=== PATIENT | female | born 1955 | race Caucasian/White ===

== ENCOUNTER 2018-02-11 13:05 | Outpatient (CLI) | payer OTHER | END 2018-02-11 23:59 | disposition home or self-care (01) | LOC: CARD DIAG 13:05 | PROVIDERS: ATTEND Internal Medicine Cardiovascular Disease | DX: I05.9 Rheumatic mitral valve disease, unspecified (principal); R94.31 Abnormal electrocardiogram [ECG] [EKG]; R06.02 Shortness of breath; F17.200 Nicotine dependence, unspecified, uncomplicated | CPT/HCPCS: 93306 ==

== ENCOUNTER 2021-03-04 15:46 | Emergency (ER) | payer BC, OTHER ==
[~2021-03-04] VITALS: Ht 152.4 cm; Wt 74.0 kg
[2021-03-04 16:09] VITALS: BP 205/109
[2021-03-04] MEDS ORDERED: CEPH-585 PO (16:16)
== END 2021-03-04 16:00 | disposition home or self-care (01) ==
LOC: ER 15:46
DX: S81.802A Unspecified open wound, left lower leg, initial encounter (principal); E11.9 Type 2 diabetes mellitus without complications; Z79.2 Long term (current) use of antibiotics; X58.XXXA Exposure to other specified factors, initial encounter; Y93.89 Activity, other specified; Y92.89 Other specified places as the place of occurrence of the external cause; Y99.8 Other external cause status
CPT/HCPCS: 99283

== ENCOUNTER 2022-02-27 12:06 | Outpatient (CLI) | payer BC, MEDICAID ==
[~2022-02-27 12:06] MED LIST: CEPH-585 PO
== END 2022-02-27 23:59 | disposition home or self-care (01) ==
LOC: LAB SPEC 12:06
PROVIDERS: ATTEND Family Medicine
DX: A41.9 Sepsis, unspecified organism (principal); L03.115 Cellulitis of right lower limb; N17.9 Acute kidney failure, unspecified; E11.40 Type 2 diabetes mellitus with diabetic neuropathy, unspecified; I73.9 Peripheral vascular disease, unspecified; F33.9 Major depressive disorder, recurrent, unspecified; E78.5 Hyperlipidemia, unspecified; I25.810 Atherosclerosis of coronary artery bypass graft(s) without angina pectoris; G62.9 Polyneuropathy, unspecified; R00.0 Tachycardia, unspecified; K59.00 Constipation, unspecified; Z20.822 Contact with and (suspected) exposure to COVID-19; I10 Essential (primary) hypertension; R26.89 Other abnormalities of gait and mobility; T81.31XD Disruption of external operation (surgical) wound, not elsewhere classified, subsequent encounter; Z74.1 Need for assistance with personal care; Z89.612 Acquired absence of left leg above knee; Z95.1 Presence of aortocoronary bypass graft
CPT/HCPCS: 87070

== ENCOUNTER 2024-01-02 17:58 | Inpatient (IN) | payer BC, MEDICAID ==
[~2024-01-02] VITALS: Ht 154.9 cm; Wt 63.6 kg
[2024-01-02 19:24] LABS: EOSINOPHILS % (AUTO) 0.1 % (0-6); HEMOGLOBIN 13.8 g/dl (12.0-16.0); MEAN CORPUSCULAR VOLUME 94.3 FL (78-98); RED CELL DISTRIBUTION WIDTH 13.7 % (11.5-14.5); WHITE BLOOD COUNT 16.4 X10'3 (4.5-11.0)
[2024-01-02 19:25] LABS: BASOPHILS # (AUTO) 0.1 X10'3 (0-0.2); BASOPHILS % (AUTO) 0.5 % (0-1); HEMATOCRIT 41.8 % (35.0-45.0); LYMPHOCYTES # (AUTO) 0.5 X10'3 (1.1-4.8); MEAN CORPUSCULAR HEMOGLOBIN 31.1 PG (27.0-31.0); MEAN PLATELET VOLUME 7.6 FL (7.4-10.4); MONOCYTES # (AUTO) 0.7 X10'3 (0-0.9); MONOCYTES % (AUTO) 4.5 % (2-12); NEUTROPHILS # (AUTO) 15.1 X10'3 (1.8-7.7); NEUTROPHILS % (AUTO) 91.9 % (42-75); PLATELET COUNT 392 X10'3 (140-440); RED BLOOD COUNT 4.43 X10'6 (4.20-5.60)
[2024-01-02] MEDS: normal saline 1000ml 1,000 ML IV ONE ×2 (19:30)
[2024-01-02] MEDS: morphine 4 MG/ML inj SYRINge IV ONE (19:34)
[2024-01-02] MEDS: piperacillin/tazo 3.375gm/50ml 50 ML IV ONE (19:37)
[2024-01-02 19:38] LABS: ALANINE AMINOTRANSFERASE 17 U/L (12-78); ALBUMIN 2.7 G/DL (3.4-5.0); ALBUMIN/GLOBULIN RATIO 0.6 (1.1-1.5); ALKALINE PHOSPHATASE 97 IU/L (46-116); ANION GAP 13 (8-16); ASPARTATE AMINO TRANSFERASE 18 U/L (10-37); BILIRUBIN,TOTAL 0.3 MG/DL (0.1-1.0); BLOOD UREA NITROGEN 36 MG/DL (7-18); BUN/CREATININE RATIO 23.2 (10.0-20.0); CALCIUM 9.8 MG/DL (8.5-10.1); CHLORIDE 98 MMOL/L (99-107); CREATININE 1.55 MG/DL (0.40-0.90); GLUCOSE 278 MG/DL (70-104); POTASSIUM 3.9 MMOL/L (3.5-5.1); SODIUM 133 MMOL/L (135-145); TOTAL CARBON DIOXIDE 21.8 MMOL/L (24-32); TOTAL PROTEIN 7.4 G/DL (6.4-8.2); eCRCL 27 ML/MIN; eGFR 33 ML/MIN
[2024-01-03] MEDS ORDERED: acetaminophen 650mg rectal suppository RC PRN (00:10)
[2024-01-03] MEDS ORDERED: mag hydrox/Alum hydrox/simeth 30ml oral suspension PO PRN (00:10)
[2024-01-03] MEDS ORDERED: ondansetron/PF 4mg/2ml inj IV PRN (00:10)
[2024-01-03] MEDS ORDERED: magnesium sulf-water 4G/100mL 100 ML IV PRN (00:10)
[2024-01-03] MEDS ORDERED: potassium Cl 20 mEq SR tablet PO PRN ×2 (00:10)
[2024-01-03] MEDS ORDERED: magnesium hydroxide 30ml (MOM) UD suspension PO PRN (00:10)
[2024-01-03] MEDS ORDERED: potassium Cl 40MEQ/1/2NS 520ml 520 ML IV PRN (00:10)
[2024-01-03] MEDS ORDERED: magnesium Cl slow-release 64mg tablet PO PRN (00:10)
[2024-01-03] MEDS ORDERED: acetaminophen 325mg tablet PO PRN (00:10)
[2024-01-03] MEDS ORDERED: magnesium sulf-water 2g/50mL 50 ML IV PRN (00:10)
[2024-01-03] MEDS: morphine 4 MG/ML inj SYRINge IV ONE (01:05)
[2024-01-03] MEDS: normal saline 1000ml 1,000 ML IV SCH (01:08)
[2024-01-03] MEDS ORDERED: glucagon, human recombinant 1mg kit SUBCUT PRN (01:15)
[2024-01-03] MEDS ORDERED: dextrose 50%-water 50ml dispensing syringe IV PRN ×2 (01:15)
[2024-01-03] MEDS ORDERED: DEXTROSE 15 GM of carb/4 tabs (each vial/BOTTLE has 4 tablets) PO PRN ×2 (01:15)
[2024-01-03 02:55] LABS: CHOL/HDL RATIO 2.6 (0.00-4.99); CHOLESTEROL 127 MG/DL (0-200); HDL CHOLESTEROL 49 MG/DL (35-60); LDL CHOLESTEROL 63 MG/DL (50-100); MAGNESIUM 1.6 MG/DL (1.5-2.4); POTASSIUM 4.3 MMOL/L (3.5-5.1); TRIGLYCERIDES 74 MG/DL (20-135)
[2024-01-03] MEDS: HYDROmorphone/PF 0.2 MG/ML SYRINGE IV PRN (03:04)
[2024-01-03] MEDS: INSULIN LISPRO 100 UNIT/ML INSULN.PEN MULTI-DOSE SQ SCH ×2 (07:58→12:00)
[2024-01-03] MEDS: K and/or MAG REPLACEMENT MC SCH (08:00)
[2024-01-03] MEDS: heparin, porcine 5000 units/ml vial SQ SCH (08:20)
[2024-01-03] MEDS: docusate sod 100mg capsule PO SCH (08:21)
[2024-01-03] MEDS: piperacillin/tazo 3.375gm/50ml 50 ML IV SCH (08:21)
[2024-01-03] MEDS: insulin regular, human 10 units/0.1 ml syringe SQ ONE (12:40)
[2024-01-03 16:54] LABS: BILIRUBIN,URINE NEGATIVE (Neg); CLARITY,URINE CLEAR (Clear); COLOR,URINE YELLOW (Yellow); GLUCOSE, URINE >=1000 mg/dl (Neg); KETONES,URINE NEGATIVE (Neg); LEUKOCYTE ESTERASE ,URINE NEGATIVE (Neg); NITRITES, URINE NEGATIVE (Neg); OCCULT BLOOD,URINE TRACE-INTACT (Neg); PH,URINE 5.5 (4.8-8.0); PROTEIN,URINE TRACE mg/dl (Neg); UROBILINOGEN,URINE 0.2 E.U/dL (0.2-1.0)
[2024-01-03 16:57] LABS: UA COLLECTION TYPE NON-SPECIFIED
[2024-01-03 16:58] LABS: BACTERIA,URINE NONE SEEN /HPF (Neg); MUCUS STRANDS NONE SEEN /LPF (Neg); RBC,URINE 0-2 /HPF (0-2); SQUAMOUS EPITHELIAL CELL,UR FEW /LPF (FEW); WBC,URINE 0-4 /HPF (0-4)
[2024-01-03 18:49] LABS: HEMATOCRIT 33.3 % (35.0-45.0); HEMOGLOBIN 10.9 g/dl (12.0-16.0); RED BLOOD COUNT 3.56 X10'6 (4.20-5.60); RED CELL DISTRIBUTION WIDTH 13.5 % (11.5-14.5)
[2024-01-03 18:50] LABS: BASOPHILS # (AUTO) 0.1 X10'3 (0-0.2); BASOPHILS % (AUTO) 0.7 % (0-1); EOSINOPHILS # (AUTO) 0.1 X10'3 (0-0.9); EOSINOPHILS % (AUTO) 0.4 % (0-6); LYMPHOCYTES # (AUTO) 0.8 X10'3 (1.1-4.8); LYMPHOCYTES % (AUTO) 6.7 % (21-51); MEAN CORPUSCULAR HEMOGLOBIN 30.6 PG (27.0-31.0); MEAN CORPUSCULAR HGB CONC 32.7 g/dL (33.0-36.5); MEAN CORPUSCULAR VOLUME 93.6 FL (78-98); MEAN PLATELET VOLUME 7.9 FL (7.4-10.4); MONOCYTES # (AUTO) 0.8 X10'3 (0-0.9); NEUTROPHILS # (AUTO) 10.2 X10'3 (1.8-7.7); NEUTROPHILS % (AUTO) 85.2 % (42-75); PLATELET COUNT 315 X10'3 (140-440); WHITE BLOOD COUNT 11.9 X10'3 (4.5-11.0)
[2024-01-03 18:57] LABS: ALANINE AMINOTRANSFERASE 14 U/L (12-78); ALBUMIN 2.3 G/DL (3.4-5.0); ALBUMIN/GLOBULIN RATIO 0.6 (1.1-1.5); ALKALINE PHOSPHATASE 75 IU/L (46-116); ANION GAP 14 (8-16); ASPARTATE AMINO TRANSFERASE 20 U/L (10-37); BILIRUBIN,TOTAL 0.3 MG/DL (0.1-1.0); BLOOD UREA NITROGEN 30 MG/DL (7-18); BUN/CREATININE RATIO 26.3 (10.0-20.0); CALCIUM 8.6 MG/DL (8.5-10.1); CHLORIDE 100 MMOL/L (99-107); CREATININE 1.14 MG/DL (0.40-0.90); GLUCOSE 297 MG/DL (70-104); POTASSIUM 4.1 MMOL/L (3.5-5.1); SODIUM 132 MMOL/L (135-145); TOTAL PROTEIN 6.3 G/DL (6.4-8.2); eCRCL 37 ML/MIN; eGFR 48 ML/MIN
[2024-01-03] MEDS ORDERED: insulin glargine (Lantus) pen - multi-dose SQ SCH (21:00)
[2024-01-03 22:09] VITALS: RESP 18; O2SAT 95
[2024-01-03] MEDS: insulin glargine (Lantus) pen - multi-dose SQ SCH (23:31)
[2024-01-03] MEDS: HYDROmorphone inj. 0.5 MG/0.5 ML DISP.SYRIN IV PRN (23:37)
[2024-01-04] VITALS (7 sets, daily range): BP systolic 152–192; BP diastolic 70–101; PULSE 82–103; RESP 15–20; TEMP 96.3–98.2; O2SAT 91–96
[2024-01-04 05:45] LABS: BASOPHILS # (AUTO) 0.1 X10'3 (0-0.2); BASOPHILS % (AUTO) 0.6 % (0-1); EOSINOPHILS # (AUTO) 0.1 X10'3 (0-0.9); EOSINOPHILS % (AUTO) 1.5 % (0-6); HEMATOCRIT 33.3 % (35.0-45.0); LYMPHOCYTES # (AUTO) 0.6 X10'3 (1.1-4.8); LYMPHOCYTES % (AUTO) 7.2 % (21-51); MEAN CORPUSCULAR HEMOGLOBIN 30.9 PG (27.0-31.0); MEAN CORPUSCULAR VOLUME 93.6 FL (78-98); MEAN PLATELET VOLUME 7.6 FL (7.4-10.4); MONOCYTES # (AUTO) 0.8 X10'3 (0-0.9); MONOCYTES % (AUTO) 8.7 % (2-12); NEUTROPHILS # (AUTO) 7.1 X10'3 (1.8-7.7); PLATELET COUNT 329 X10'3 (140-440); RED BLOOD COUNT 3.56 X10'6 (4.20-5.60); RED CELL DISTRIBUTION WIDTH 13.5 % (11.5-14.5); WHITE BLOOD COUNT 8.7 X10'3 (4.5-11.0)
[2024-01-04 06:02] LABS: ALANINE AMINOTRANSFERASE 17 U/L (12-78); ALBUMIN 2.1 G/DL (3.4-5.0); ALBUMIN/GLOBULIN RATIO 0.5 (1.1-1.5); ALKALINE PHOSPHATASE 73 IU/L (46-116); ANION GAP 7 (8-16); ASPARTATE AMINO TRANSFERASE 24 U/L (10-37); BILIRUBIN,TOTAL 0.3 MG/DL (0.1-1.0); BLOOD UREA NITROGEN 23 MG/DL (7-18); BUN/CREATININE RATIO 24.5 (10.0-20.0); CALCIUM 8.7 MG/DL (8.5-10.1); CHLORIDE 105 MMOL/L (99-107); CREATININE 0.94 MG/DL (0.40-0.90); GLUCOSE 181 MG/DL (70-104); MAGNESIUM 1.7 MG/DL (1.5-2.4); SODIUM 136 MMOL/L (135-145); TOTAL CARBON DIOXIDE 23.7 MMOL/L (24-32); TOTAL PROTEIN 6.1 G/DL (6.4-8.2); eCRCL 44 ML/MIN; eGFR 60 ML/MIN
[2024-01-04] MEDS: CHLORHEXIDINE GLUCONATE 4% 15 ML topical sol TP ONE (08:00)
[2024-01-04] MEDS: gabapentin 400mg capsule PO SCH ×2 (14:27→21:12)
[2024-01-04] MEDS: lactose-reduced food (Ensure Enlive) - 237ml bottle PO SCH (18:00)
[2024-01-05] VITALS (7 sets, daily range): BP systolic 148–182; BP diastolic 78–104; PULSE 82–110; RESP 16–18; TEMP 96.4–97; O2SAT 96–98
[2024-01-05] MEDS: lisinopril 20mg tablet PO SCH (00:42)
[2024-01-05 04:57] LABS: BASOPHILS # (AUTO) 0.1 X10'3 (0-0.2); EOSINOPHILS # (AUTO) 0.2 X10'3 (0-0.9); EOSINOPHILS % (AUTO) 2.3 % (0-6); HEMATOCRIT 34.3 % (35.0-45.0); HEMOGLOBIN 11.4 g/dl (12.0-16.0); LYMPHOCYTES # (AUTO) 0.7 X10'3 (1.1-4.8); LYMPHOCYTES % (AUTO) 9.1 % (21-51); MEAN CORPUSCULAR HEMOGLOBIN 30.9 PG (27.0-31.0); MEAN CORPUSCULAR HGB CONC 33.2 g/dL (33.0-36.5); MEAN PLATELET VOLUME 7.5 FL (7.4-10.4); MONOCYTES # (AUTO) 0.7 X10'3 (0-0.9); MONOCYTES % (AUTO) 10.1 % (2-12); NEUTROPHILS # (AUTO) 5.5 X10'3 (1.8-7.7); NEUTROPHILS % (AUTO) 77.5 % (42-75); PLATELET COUNT 370 X10'3 (140-440); RED BLOOD COUNT 3.68 X10'6 (4.20-5.60); RED CELL DISTRIBUTION WIDTH 13.3 % (11.5-14.5); WHITE BLOOD COUNT 7.1 X10'3 (4.5-11.0)
[2024-01-05 05:12] LABS: ALANINE AMINOTRANSFERASE 23 U/L (12-78); ALBUMIN 2.1 G/DL (3.4-5.0); ALBUMIN/GLOBULIN RATIO 0.5 (1.1-1.5); ALKALINE PHOSPHATASE 68 IU/L (46-116); ANION GAP 8 (8-16); ASPARTATE AMINO TRANSFERASE 29 U/L (10-37); BILIRUBIN,TOTAL 0.3 MG/DL (0.1-1.0); BLOOD UREA NITROGEN 15 MG/DL (7-18); BUN/CREATININE RATIO 19.7 (10.0-20.0); CALCIUM 8.8 MG/DL (8.5-10.1); CHLORIDE 106 MMOL/L (99-107); CREATININE 0.76 MG/DL (0.40-0.90); GLUCOSE 135 MG/DL (70-104); MAGNESIUM 1.6 MG/DL (1.5-2.4); POTASSIUM 3.7 MMOL/L (3.5-5.1); SODIUM 139 MMOL/L (135-145); TOTAL CARBON DIOXIDE 24.7 MMOL/L (24-32); TOTAL PROTEIN 6.1 G/DL (6.4-8.2); eCRCL 55 ML/MIN; eGFR 76 ML/MIN
[2024-01-05] MEDS ORDERED: IBUP-2417 PO (05:49)
[2024-01-05] MEDS ORDERED: LISI20TA28 PO (05:49)
[2024-01-05] MEDS ORDERED: INSU100I8 SQ (05:49)
[2024-01-05] MEDS ORDERED: ACET-812 PO (05:49)
[2024-01-05] MEDS ORDERED: ATOR-2 PO (05:49)
[2024-01-05] MEDS ORDERED: LANTUS SQ (05:49)
[2024-01-05] MEDS ORDERED: GABA600T13 (05:49)
[2024-01-05] MEDS ORDERED: ASPI-1265 PO (05:49)
[2024-01-05] MEDS ORDERED: METO50TA16 PO (05:49)
[2024-01-05] MEDS ORDERED: TRAM50TA2 PO (05:49)
[2024-01-05] MEDS: traMADol 50MG tablet PO PRN (10:09)
[2024-01-05 10:37] LABS: C DIFF ANTIGEN NEGATIVE (NEGATIVE); C DIFF SPECIMEN=DIARRHEA? ACCEPTABLE; C DIFFICILE TOXINS A&B NEGATIVE (Neg)
[2024-01-05] MEDS ORDERED: GABA-535 PO (11:55)
[2024-01-05] MEDS ORDERED: AMOX-580 PO (11:55)
== END 2024-01-05 14:30 | disposition home health service (06) | DRG 871 ==
LOC: ER 17:58 → ED HOLD 01-03 00:17 → EDBEDREQ 01-03 20:12 → PCU 3S 01-03 20:56 → ORTHO 4S 01-04 11:57
PROVIDERS: ADMIT Surgery; ATTEND Internal Medicine
DX: A41.9 Sepsis, unspecified organism (principal); N17.0 Acute kidney failure with tubular necrosis; L03.211 Cellulitis of face; K12.2 Cellulitis and abscess of mouth; K02.9 Dental caries, unspecified; I25.10 Atherosclerotic heart disease of native coronary artery without angina pectoris; I10 Essential (primary) hypertension; E78.5 Hyperlipidemia, unspecified; E11.628 Type 2 diabetes mellitus with other skin complications; E11.65 Type 2 diabetes mellitus with hyperglycemia; Z95.1 Presence of aortocoronary bypass graft; Z89.612 Acquired absence of left leg above knee; Z79.899 Other long term (current) drug therapy; Z79.4 Long term (current) use of insulin; I25.2 Old myocardial infarction
CPT/HCPCS: 36415; 70490; 80053; 80061; 81001; 82948; 83036; 83605; 83735; 84132; 84145; 85025; 85651; 87040; 87324; 87449; 96365; 96375; 99285; A4649; A6154; A6196; A6223; A6253; A6258; A6260; A6446; A6449; G0378; J1170; J1644; J1815; J2270; J2543; J7030; J7040